=== PATIENT | male | born 2000 | race Hispanic/Latino ===

== ENCOUNTER 2021-10-15 13:21 | Emergency (ER) | payer SELFPAY ==
[2021-10-15] MEDS ORDERED: Xylocaine 1% w/ Epi 1:100K 10 ML VIAL ONE (14:56)
[2021-10-15] MEDS ORDERED: Boostrix 0.5 ML (Tdap) VIAL ONE (15:27)
[2021-10-15] MEDS ORDERED: Bacitracin 1 PK ONE (15:52)
== END 2021-10-15 16:10 | disposition home or self-care (01) ==
LOC: ERS 13:21
DX: S61.412A Laceration without foreign body of left hand, initial encounter (principal); Z87.891 Personal history of nicotine dependence; Z23 Encounter for immunization; W26.0XXA Contact with knife, initial encounter
CPT/HCPCS: 12001; 90471; 90715

== ENCOUNTER 2024-06-05 17:17 | Emergency (ER) | payer OTHER, SELFPAY | END 2024-06-05 19:13 | disposition home or self-care (01) | LOC: ERS 17:17 | DX: R25.0 Abnormal head movements (principal); Z55.0 Illiteracy and low-level literacy; Z75.3 Unavailability and inaccessibility of health-care facilities | CPT/HCPCS: 99282 ==